=== PATIENT | male | born 1980 | race Two or more races ===

== ENCOUNTER 2021-06-11 21:50 | Emergency (ER) | payer SELFPAY ==
--- NOTE | 2021-06-11 22:30 | EDM.PDOC ---
ED HPI GENERAL MEDICAL PROBLEM - General Chief Complaint: General Stated Complaint: MEDICAL CLEARANCE Time Seen by Provider: 06/11/21 22:16 Source of Information: Reports: Patient History Limitations: Reports: No Limitations - History of Present Illness INITIAL COMMENTS - FREE TEXT/NARRATIVE: Patient is a 41-year-old male brought in by police for medical clearance. Patient has history of diabetes not take medication for the past 6 months. States that he was allergic to Metformin and it changed him to any other medication. On exam he has no complaints no increased urination no fatigue no other symptoms. - Related Data Allergies Allergy/AdvReac Type Severity Reaction Status Date / Time No Known Allergies Allergy Verified 06/11/21 22:17 Home Meds: Home Meds . [No Known Home Meds] 06/11/21 [History] Past Medical History HEENT History: Reports: None Cardiovascular History: Reports: None Respiratory History: Reports: None Gastrointestinal History: Reports: None Genitourinary History: Reports: None Musculoskeletal History: Reports: None Neurological History: Reports: None Psychiatric History: Reports: None Endocrine/Metabolic History: Reports: Diabetes, Type II Insulin Pump Model and Employment Evaluator/Case Manager: None Hematologic History: Reports: None Immunologic History: Reports: None Oncologic (Cancer) History: Reports: None Dermatologic History: Reports: None - Infectious Disease History Infectious Disease History: Reports: None - Past Surgical History Head Surgeries/Procedures: Reports: None GI Surgical History: Reports: Appendectomy Social & Family History - Caffeine Use Caffeine Use: Reports: None - Recreational Drug Use Recreational Drug Use: No ED ROS GENERAL - Review of Systems Review Of Systems: See Below Constitutional: Reports: No Symptoms HEENT: Reports: No Symptoms Respiratory: Reports: No Symptoms Cardiovascular: Reports: No Symptoms Endocrine: Reports: No Symptoms GI/Abdominal: Reports: No Symptoms : Reports: No Symptoms Musculoskeletal: Reports: No Symptoms Skin: Reports: No Symptoms Neurological: Reports: No Symptoms Psychiatric: Reports: No Symptoms Hematologic/Lymphatic: Reports: No Symptoms Immunologic: Reports: No Symptoms ED EXAM, GENERAL - Physical Exam Exam: See Below Exam Limited By: No Limitations General Appearance: Alert, WD/WN, No Apparent Distress Eye Exam: Bilateral Eye: EOMI, PERRL Respiratory/Chest: No Respiratory Distress, Lungs Clear, Normal Breath Sounds Cardiovascular: Normal Peripheral Pulses, Regular Rate, Rhythm GI/Abdominal: Normal Bowel Sounds, Soft, Non-Tender Extremities: Normal Inspection, Normal Range of Motion Neurological: Alert, Oriented, Normal Cognition, Normal Gait Course - Vital Signs Last Recorded V/S: Last Vital Signs Temp Pulse 106 H 06/11/21 22:17 Resp 18 06/11/21 22:17 BP 130/83 06/11/21 22:17 Pulse Ox 97 06/11/21 22:17 - Orders/Labs/Meds Labs: Laboratory Tests 06/11/21 Range/Units 22:19 POC Glucose 339 H (70-99) mg/dL Departure - Departure Time of Disposition: 22:29 Disposition: Home, Self-Care 01 Condition: Good Clinical Impression: General medical exam - Discharge Information *PRESCRIPTION DRUG MONITORING PROGRAM REVIEWED*: Not Applicable *COPY OF PRESCRIPTION DRUG MONITORING REPORT IN PATIENT ESTELLA: Not Applicable Instructions: Medical Screening Exam Referrals: PCP,None [Primary Care Provider] - Additional Instructions: The following information is given to patients seen in the emergency department who are being discharged to home. This information is to outline your options for follow-up care. We provide all patients seen in our emergency department with a follow-up referral. The need for follow-up, as well as the timing and circumstances, are variable depending upon the specifics of your emergency department visit. If you don't have a primary care physician on staff, we will provide you with a referral. We always advise you to contact your personal physician following an emergency department visit to inform them of the circumstance of the visit and for follow-up with them and/or the need for any referrals to a consulting specialist. The emergency department will also refer you to a specialist when appropriate. This referral assures that you have the opportunity for follow-up care with a specialist. All of these measure are taken in an effort to provide you with optimal care, which includes your follow-up. Under all circumstances we always encourage you to contact your private physician who remains a resource for coordinating your care. When calling for follow-up care, please make the office aware that this follow-up is from your recent emergency room visit. If for any reason you are refused follow-up, please contact the [facility] Department at and asked to speak to the emergency department charge nurse. Please follow up with your primary care physician. If you do not have a primary care physician, see below: [facility] [address] [place] [address] [facility] [address] [place] [address] Jesse Dumont [facility] [address] [place] [address] You were seen today for elevated blood sugar. You have a history of diabetes but not taking medication. Above numbers you can call to try to attain follow- up to get on a diabetic regimen. He did not have any symptoms right now from your diabetes and we will know what medication he takes so is difficult for us to start you anything right now so we recommend follow-up with her primary care physician to get on a regimen. Sepsis Event Note (ED) - Focused Exam Vital Signs: Vital Signs Pulse Resp BP Pulse Ox 06/11/21 22:17 106 H 18 130/83 97 - Assessment/Plan Plan: Patient is a 41-year-old male who presents today for medical clearance. Patient does have a fingerstick greater than 300 however he is not symptomatic. He has not take medication for the past few months he does not know what medication should be taken. Due to not having symptoms we will have patient follow-up with primary care as outpatient and start patient on regiment.
== END 2021-06-11 22:40 | disposition home or self-care (01) ==
LOC: MW.ED 21:50
DX: Z00.00 Encounter for general adult medical examination without abnormal findings (principal); E11.9 Type 2 diabetes mellitus without complications
CPT/HCPCS: 82947; 99283

== ENCOUNTER 2021-11-20 11:53 | Emergency (ER) | payer SELFPAY ==
[2021-11-20] MEDS ORDERED: Diphtheria,Pertussis(Acell),Tetanus Vaccine 0.5 ML Syringe IM ONE (12:00)
[2021-11-20] MEDS ORDERED: Cephalexin 500 MG Cap PO ONE (12:25)
== END 2021-11-20 13:11 ==
LOC: MW.ED 11:53
DX: S82.002C Unspecified fracture of left patella, initial encounter for open fracture type IIIA, IIIB, or IIIC (principal); E11.9 Type 2 diabetes mellitus without complications; Z23 Encounter for immunization; W20.8XXA Other cause of strike by thrown, projected or falling object, initial encounter
CPT/HCPCS: 12001; 73562; 90471; 90715; 99283; A9270